=== PATIENT | male | born 1980 | race Hispanic/Latino ===

== ENCOUNTER 2023-01-31 18:11 | Inpatient (IN) | payer OTHER ==
[~2023-01-31] VITALS: Ht 167.6 cm; Wt 86.9 kg
[2023-01-31] MEDS: GLUCAGON 1MG KIT 1 MG ML IM SCH ×2 (18:40→20:33)
[2023-01-31 18:58] LABS: BASOPHILS # (AUTO) 0.09 K/uL (0.00-0.20); BASOPHILS % (AUTO) 0.7 % (0.0-5.0); EOSINOPHILS # (AUTO) 0.88 K/uL (0.00-0.70); EOSINOPHILS % (AUTO) 7.1 % (0.0-8.0); HEMATOCRIT 43.7 % (42-54); IMMATURE GRANULOCYTE ABSOLUTE 0.04 K/uL (0-1); LYMPHOCYTES # (AUTO) 5.8 K/uL (1.0-4.8); LYMPHOCYTES % (AUTO) 46.7 % (21.0-51.0); MEAN CORPUSCULAR HEMOGLOBIN 31.4 pg (27.0-33.0); MEAN CORPUSCULAR HGB CONC 33.9 g/dL (32.0-36.0); MEAN CORPUSCULAR VOLUME 92.6 fL (79-99); MONOCYTES # (AUTO) 1.3 K/uL (0.1-1.0); MONOCYTES % (AUTO) 10.4 % (3.0-13.0); NEUTROPHILS # (AUTO) 4.3 K/uL (1.8-7.7); NEUTROPHILS % (AUTO) 34.8 % (40.0-77.0); PLATELET COUNT (AUTO) 275 K/uL (130-400); RED BLOOD CELL COUNT(AUTO) 4.72 MIL/uL (4.50-6.20); RED CELL DISTRIBUTION WIDTH 11.7 % (11.0-15.5); WHITE BLOOD COUNT (AUTO) 12.5 K/uL (4.8-10.8)
[2023-01-31] MEDS ORDERED: MORPHINE 4 MG SYG IVP ONE (19:00)
[2023-01-31] MEDS ORDERED: METOCLOPRAMIDE 10 MG/2 ML VIAL IVP ONE (19:00)
[2023-01-31] MEDS ORDERED: NITROGLYCERIN 1GM OINT 1 INCH/1GM TD ONE (19:00)
[2023-01-31 19:24] LABS: CREATININE 1.3 mg/dL (0.5-1.5); POTASSIUM 3.4 mmol/L (3.5-5.1)
[2023-01-31 19:26] LABS: ALBUMIN 3.9 g/dL (3.5-5.0); BILIRUBIN,TOTAL 0.2 mg/dL (0.2-1.0); TOTAL PROTEIN, SERUM 7.6 g/dL (6.0-8.3)
[2023-01-31] MEDS ORDERED: IOHEXOL 350 MG/ML 100ML INFUS..BTL IV ONE (19:28)
[2023-01-31 19:30] LABS: BAND NEUTROPHILS % (MANUAL) 1 % (0-2); EOSINOPHILS % (MANUAL) 10 % (1-6); LYMPHOCYTES % (MANUAL) 38 % (22-44); MONOCYTES % (MANUAL) 11 % (2-9); REACTIVE LYMPHOCYTES 6 % (0-0); SEGMENTED NEUTROPHILS % 34 % (40-70); TOTAL CELLS COUNTED 100
[2023-01-31 19:31] LABS: MAN.DIFF COMMENT-IMPRESSION MANUAL DIFFERENTIAL; PLATELET MORPHOLOGY COMMENT ADEQUATE
[2023-01-31] MEDS ORDERED: HYDROMORPHONE 1 MG INJ ONE (20:26)
[2023-01-31] MEDS ORDERED: GLUCAGON 1MG KIT 1 MG ML IV ONE (20:30)
[2023-01-31] MEDS ORDERED: HYDROMORPHONE 1 MG INJ IVP ONE (20:30)
[2023-01-31] MEDS ORDERED: GLUCAGON 1MG KIT 1 MG ML IM ONE (21:00)
[2023-01-31] MEDS ORDERED: MORPHINE 4 MG SYG IV PRN (21:30)
[2023-01-31] MEDS ORDERED: ONDANSETRON 4MG INJ IV PRN (21:30)
[2023-01-31] MEDS ORDERED: POTASSIUM CHLORIDE 20MEQ/100ML 100 ML IV PRN (21:30)
[2023-01-31] MEDS ORDERED: MAGNESIUM 2GM PREMIX 50ML 50 ML IV PRN (21:30)
[2023-01-31] MEDS ORDERED: MORPHINE 2 MG SYG IV PRN (21:30)
[2023-01-31] MEDS: LACTATED RINGERS 1000ML 1,000 ML IV SCH (21:41)
[2023-01-31 22:24] VITALS: O2SAT 98
[2023-01-31 23:01] VITALS: BP 121/84; PULSE 97; RESP 16
[2023-02-01] VITALS (29 sets, daily range): BP systolic 107–120; BP diastolic 59–73; PULSE 101–130; RESP 16–20; O2SAT 97
[2023-02-01] MEDS ORDERED: HYDROMORPHONE 1 MG INJ IVP ONE (01:30)
[2023-02-01 04:25] LABS: BASOPHILS # (AUTO) 0.04 K/uL (0.00-0.20); BASOPHILS % (AUTO) 0.2 % (0.0-5.0); LYMPHOCYTES # (AUTO) 0.9 K/uL (1.0-4.8); LYMPHOCYTES % (AUTO) 4.6 % (21.0-51.0); MEAN CORPUSCULAR HEMOGLOBIN 31.3 pg (27.0-33.0); MEAN CORPUSCULAR HGB CONC 33.9 g/dL (32.0-36.0); MEAN CORPUSCULAR VOLUME 92.3 fL (79-99); MONOCYTES # (AUTO) 1.6 K/uL (0.1-1.0); MONOCYTES % (AUTO) 8.3 % (3.0-13.0); NEUTROPHILS # (AUTO) 16.2 K/uL (1.8-7.7); NEUTROPHILS % (AUTO) 86.4 % (40.0-77.0); PLATELET COUNT (AUTO) 261 K/uL (130-400); RED BLOOD CELL COUNT(AUTO) 4.44 MIL/uL (4.50-6.20); RED CELL DISTRIBUTION WIDTH 11.9 % (11.0-15.5); WHITE BLOOD COUNT (AUTO) 18.8 K/uL (4.8-10.8)
[2023-02-01 04:34] LABS: INR < 0.93 (0.85-1.15); PROTHROMBIN TIME 10.6 SEC (9.6-11.6)
[2023-02-01 04:35] LABS: CREATININE 1.5 mg/dL (0.5-1.5); MAGNESIUM 1.5 mg/dL (1.80-2.40); PARTIAL THROMBOPLASTIN TIME 24.9 SEC (26.3-35.5); PHOSPHORUS 3.7 mg/dL (2.5-4.9); POTASSIUM 4.5 mmol/L (3.5-5.1)
[2023-02-01] MEDS: FAMOTIDINE 20MG VIAL IV SCH ×2 (08:51→20:34)
[2023-02-01] MEDS ORDERED: LORAZEPAM 2 MG/ML 1 ML VIAL IVP PRN (10:30)
[2023-02-01] MEDS: LACTATED RINGERS 1000ML 1,000 ML IV SCH (11:26)
[2023-02-01] MEDS ORDERED: MIDAZOLAM HCL 1 MG/ML 2ML VIAL ONE (13:04)
[2023-02-01] MEDS ORDERED: PROPOFOL 10 MG/ML 20ML VIAL IV ONE (13:05)
[2023-02-01] MEDS ORDERED: SUCCINYLCHOLINE CHLORIDE 20 MG/ML 10 ML VIAL ONE (13:05)
[2023-02-01] MEDS ORDERED: LIDOCAINE PF 100MG/5ML (2%) SYRINGE 5ML ONE (13:05)
[2023-02-01] MEDS ORDERED: FENTANYL CITRATE PF 50 MCG/1 ML 2ML VIAL ONE (13:05)
[2023-02-01] MEDS ORDERED: ROCURONIUM BROMIDE 10MG/1ML 5ML VL ONE (13:10)
[2023-02-01] MEDS: ZOSYN 3.375GM +NS 50ML IVPB SCH (20:34)
[2023-02-01] MEDS: PANTOPRAZOLE 40 MG/VIAL IVP SCH (20:34)
[2023-02-01 23:00] LABS: APPEARANCE,URINE CLEAR (CLEAR); BILIRUBIN,URINE NEGATIVE (NEGATIVE); COLOR,URINE LIGHT-YELLOW (YELLOW); GLUCOSE, URINE (UA) NEGATIVE (NEGATIVE); KETONES,URINE NEGATIVE (NEGATIVE); LEUKOCYTE ESTERASE ,URINE NEGATIVE Leu/uL (NEGATIVE); NITRATE,URINE NEGATIVE (NEGATIVE); OCCULT BLOOD,URINE NEGATIVE (NEGATIVE); PROTEIN,URINE 20 mg/dL (NEGATIVE); UROBILINOGEN,URINE 0.2 mg/dL (0.2-1.0)
[2023-02-01 23:01] LABS: ADD UA MICROSCOPIC YES
[2023-02-01 23:05] LABS: BACTERIA,URINE None Seen /HPF (None Seen); SQUAMOUS EPITHELIAL CELL,UR None Seen /HPF (0-2)
[2023-02-02] MEDS: LACTATED RINGERS 1000ML 1,000 ML IV SCH ×2 (00:10→13:30)
[2023-02-02 04:00] VITALS: BP 115/64; PULSE 88; RESP 19
[2023-02-02] MEDS: ZOSYN 3.375GM +NS 50ML IVPB SCH ×3 (04:50→20:09)
[2023-02-02 05:26] LABS: HEMATOCRIT 40.2 % (42-54); MEAN CORPUSCULAR HEMOGLOBIN 31.3 pg (27.0-33.0); MEAN CORPUSCULAR HGB CONC 32.6 g/dL (32.0-36.0); MEAN CORPUSCULAR VOLUME 95.9 fL (79-99); RED BLOOD CELL COUNT(AUTO) 4.19 MIL/uL (4.50-6.20); RED CELL DISTRIBUTION WIDTH 12.2 % (11.0-15.5); WHITE BLOOD COUNT (AUTO) 17.1 K/uL (4.8-10.8)
[2023-02-02 05:43] LABS: CREATININE 1.2 mg/dL (0.5-1.5); POTASSIUM 4.2 mmol/L (3.5-5.1)
[2023-02-02 08:00] VITALS: BP 114/68; PULSE 94; RESP 20; O2SAT 98
[2023-02-02] MEDS: PANTOPRAZOLE 40 MG/VIAL IVP SCH ×2 (09:00→20:09)
[2023-02-02] MEDS: FAMOTIDINE 20MG VIAL IV SCH ×2 (09:00→20:08)
[2023-02-02 12:00] VITALS: BP 122/77; PULSE 71; RESP 20
[2023-02-02 16:00] VITALS: BP 107/64; PULSE 89; RESP 20
[2023-02-02 19:00] VITALS: BP 119/62; PULSE 91; RESP 20
[2023-02-02 20:00] VITALS: O2SAT 98
[2023-02-03] VITALS (9 sets, daily range): BP systolic 105–129; BP diastolic 66–80; PULSE 75–89; RESP 16–20; O2SAT 98
[2023-02-03] MEDS: LACTATED RINGERS 1000ML 1,000 ML IV SCH ×2 (02:50→19:39)
[2023-02-03] MEDS: ZOSYN 3.375GM +NS 50ML IVPB SCH ×3 (05:19→20:49)
[2023-02-03 08:01] LABS: HEMATOCRIT 39.3 % (42-54); MEAN CORPUSCULAR HEMOGLOBIN 31.4 pg (27.0-33.0); MEAN CORPUSCULAR HGB CONC 34.1 g/dL (32.0-36.0); RED BLOOD CELL COUNT(AUTO) 4.27 MIL/uL (4.50-6.20); RED CELL DISTRIBUTION WIDTH 11.8 % (11.0-15.5); WHITE BLOOD COUNT (AUTO) 12.4 K/uL (4.8-10.8)
[2023-02-03] MEDS: FAMOTIDINE 20MG VIAL IV SCH ×2 (09:08→20:49)
[2023-02-03] MEDS: PANTOPRAZOLE 40 MG/VIAL IVP SCH ×2 (09:08→20:49)
[2023-02-04 03:00] VITALS: BP 125/68; PULSE 70; RESP 16
[2023-02-04] MEDS: LACTATED RINGERS 1000ML 1,000 ML IV SCH (04:12)
[2023-02-04] MEDS: ZOSYN 3.375GM +NS 50ML IVPB SCH ×2 (04:51→13:00)
[2023-02-04 05:13] LABS: HEMATOCRIT 43.9 % (42-54); MEAN CORPUSCULAR VOLUME 93.8 fL (79-99); RED BLOOD CELL COUNT(AUTO) 4.68 MIL/uL (4.50-6.20); RED CELL DISTRIBUTION WIDTH 11.8 % (11.0-15.5); WHITE BLOOD COUNT (AUTO) 10.6 K/uL (4.8-10.8)
[2023-02-04 05:31] LABS: ALBUMIN 3.4 g/dL (3.5-5.0); BILIRUBIN,TOTAL 0.8 mg/dL (0.2-1.0); CREATININE 1.4 mg/dL (0.5-1.5); MAGNESIUM 1.8 mg/dL (1.80-2.40); POTASSIUM 3.8 mmol/L (3.5-5.1); TOTAL PROTEIN, SERUM 8.3 g/dL (6.0-8.3)
[2023-02-04 07:49] VITALS: BP 120/64; PULSE 75; RESP 16
[2023-02-04] MEDS: PANTOPRAZOLE 40 MG/VIAL IVP SCH (09:13)
[2023-02-04] MEDS: FAMOTIDINE 20MG VIAL IV SCH (09:14)
[2023-02-04 11:23] VITALS: BP 114/71; PULSE 74; RESP 18
[2023-02-04] MEDS ORDERED: PANT40TA55 PO (15:47)
[2023-02-04 16:00] VITALS: BP 128/83; PULSE 81; RESP 16
== END 2023-02-04 16:30 | disposition home or self-care (01) | DRG 393 ==
LOC: EDH 18:11 → EDHIP 18:12 → 3BH 22:24
PROVIDERS: ADMIT Internal Medicine; ATTEND Internal Medicine
PROC: 0D758ZZ Dilation of Esophagus, Via Natural or Artificial Opening Endoscopic (ICD-10-PCS; principal; 2023-02-01)
PROC: 0DC38ZZ Extirpation of Matter from Lower Esophagus, Via Natural or Artificial Opening Endoscopic (ICD-10-PCS; 2023-02-01)
PROC: 0DB58ZX Excision of Esophagus, Via Natural or Artificial Opening Endoscopic, Diagnostic (ICD-10-PCS; 2023-02-01)
DX: T18.128A Food in esophagus causing other injury, initial encounter (principal); K22.11 Ulcer of esophagus with bleeding; K22.2 Esophageal obstruction; D72.829 Elevated white blood cell count, unspecified; W44.F3XA Food entering into or through a natural orifice, initial encounter; E83.42 Hypomagnesemia; Z59.7 Insufficient social insurance and welfare support; Z75.3 Unavailability and inaccessibility of health-care facilities
CPT/HCPCS: 36415; 43239; 43247; 43249; 71270; 74178; 74230; 80048; 80053; 81001; 83735; 84100; 85025; 85027; 85610; 85730; 86850; 86900; 86901; 88305; 92611; 93005; 96372; 96374; 96375; C1725; C9113; G0378; J0330; J1170; J1610; J2001; J2060; J2250; J2270; J2405; J2543; J2704; J2765; J3010; J3475; J3490; J7030; J7120; Q9967; A4215; A4222; A4223; A4620; A4657